=== PATIENT | female | born 1955 | race Caucasian/White ===

== ENCOUNTER → 2016-10-02 | Outpatient (CLI) | payer BC ==
[~2016-10-02] MED LIST: ATOR10TA82 PO; DICY20TA10 PO; EST1 PO; ESTR0.5T3 PO; FURO20TA PO; GLC500 PO; MELO15TA4 PO; MOME100A INH; PRAV20TA PO; VALA500T39 PO; [UNRECOGNIZED DRUG - OTHER] TOP
[2016-10-02 10:17] LABS: BLOOD UREA NITROGEN 14 mg/dl (7-18); BUN/CREATININE RATIO 20.7 (10-20); CALCIUM 9.8 mg/dl (8.5-10.1); CARBON DIOXIDE 26 mmol/L (21-32); CHLORIDE 104 mmol/L (98-107); GLUCOSE 102 mg/dl (70-99); MAGNESIUM 2.2 mg/dl (1.8-2.4); POTASSIUM 3.9 mmol/L (3.5-5.1); SODIUM 139 mmol/L (136-145)
== END | disposition home or self-care (01) ==
LOC: C.LAB1850 07:10
PROVIDERS: ATTEND Nurse Practitioner Adult Health
DX: M79.89 Other specified soft tissue disorders (principal)

== ENCOUNTER → 2016-10-10 | Outpatient (CLI) | payer BC ==
--- NOTE | 2016-10-10 16:19 | MAMMOGRAPHY REPORT ---
UNILATERAL RIGHT DIGITAL DIAGNOSTIC MAMMOGRAM TOMOSYNTHESIS WITH CAD AND TARGETED RIGHT ULTRASOUND: 10/10/2016 CLINICAL HISTORY: 61-year-old woman presents for follow-up in the right breast, for probably benign masses seen on prior diagnostic workup. Family history of breast cancer = aunt and grandmother. TECHNIQUE: Right CC and MLO 2-D digital and tomosynthesis images, spot magnification right CC and M L views were obtained. Current study was also evaluated with a Computer Aided Detection (CAD) orlando corbett. COMPARISON: Comparison is made to exams dated: 04/11/2016 mammogram, 04/11/2016 ultrasound, 04/05/20 15 ultrasound, 04/05/2015 mammogram, 03/30/2014 mammogram, and 03/26/2013 mammogram - [facility]. BREAST COMPOSITION: The tissue of the right breast is heterogeneously dense, which may obscure smal l masses. FINDINGS: The parenchymal pattern of the right breast is similar to prior mammograms. There are po ssible new clustered microcalcifications in the upper outer posterior right breast, near the fatgla ndular interface, for which additional spot magnification views were obtained. On the spot magnific ation views, there is a single round microcalcification an adjacent faint punctate and amorphous rozina rocalcifications that appear new compared to prior exams, measuring 3.5 mm in diameter. No obvious associated mass or asymmetry. Definitive characterization with tissue sampling is recommended. No other obvious new mass, focal area of architectural distortion or suspicious calcifications are iden tified. Targeted ultrasound was performed in the 12:00, 9:00 and 10:00 axes of the right breast. In the 12: 00 periareolar breast, a lobulated hypoechoic mass with posterior acoustic enhancement is again iden tified measuring 6.6 x 6.1 x 7.5 mm. This previously measured 7.7 x 5.2 x 6.9 mm and is considered unchanged. In the 10:00 right breast, 1 cm from the nipple, an oval parallel circumscribed hypoecho ic solid versus cystic mass is again seen measuring 3.8 x 3.1 x 4.1 mm. This previously measured 3. 5 x 2.6 x 4.0 mm. This is also unchanged. In the 9:00 right breast, 2 cm from the nipple, there is a lobulated and circumscribed hypoechoic solid versus cystic mass 2 cm deep to the dermis. This me asures 9.5 x 6.7 x 9.3 mm and was not definitely seen on the prior ultrasound. In the 9:00 periareo lar right breast, there is an isoechoic solid mass with hypoechoic to anechoic crescentic halo. Thi s measures 8.1 x 8.6 x 8.5 mm. In the radial plane, there is a duct coursing just below and abuttin g this mass, suggesting it may be an intraductal mass. Therefore, definitive characterization with tissue sampling is recommended. IMPRESSION: ACR BI-RADS CATEGORY 4B: INTERMEDIATE SUSPICION FOR MALIGNANCY, TARGETED ULTRASOUND ACR BI-RADS CATEGORY 4B: INTERMEDIATE SUSPICION FOR MALIGNANCY 1. Ultrasound guided core needle biopsy is recommended for a solid possible intraductal 8.6 mm mass in the 9:00 periareolar right breast. 2. Stereotactic guided biopsy is recommended in the right breast, for new faint clustered amorphous and punctate microcalcifications in the upper outer middle to posterior breast. 3. Pending benign pathology results, would recommend another targeted right breast ultrasound in th e 9:00, 10:00 and 12:00 axes to ensure stability of other masses identified on ultrasound. The mass es identified in the 12:00 periareolar breast, and 10:00 axis, 1 cm from the nipple are stable sandro red to the prior exam. A newly visualized benign appearing mass is seen in the 9:00 right breast, 2 cm from the nipple. Annual left mammography will also be due at that time. These results and recommendations were discussed with the patient at the time of the exam. She tent atively scheduled the right breast biopsies prior to leaving our department. Approximately 10% of breast cancers are not detected with mammography. A negative mammographic repor t should not delay biopsy if a clinically suggestive mass is present. Rina Ross M.D. ay/:10/10/2016 15:46:28 Test Kitchen Home Economist: Renetta ROGERS(Radha)(Harshad), [facility] letter sent: Abnormal 4/5 BI-RADS Code: ACR BI-RADS Category 4B: Intermediate Suspicion For Malignancy Ultrasound BI-RADS: AC R BI-RADS Category 4B: Intermediate Suspicion For Malignancy
== END | disposition home or self-care (01) ==
LOC: C.MAMM 09:35
PROVIDERS: ATTEND Obstetrics & Gynecology
DX: N63 Unspecified lump in breast (principal); R92.0 Mammographic microcalcification found on diagnostic imaging of breast

== ENCOUNTER → 2016-10-25 | Outpatient (CLI) | payer BC ==
--- NOTE | 2016-10-25 09:26 | Discharge Instructions ---
Discharge Instructions Procedure Procedure Date: October 25, 2016. Reason for visit: Right Calcs/Us Bx Right Mass. Discharge Discharge Date: October 25, 2016. Discharge Diagnosis: post right breast stereotactic guided biopsy and ultrasound guided core biopsy Instructions Activity Recommendations: Additional Limitations (see below) Return to School/Work: no limitations Recommended Home Diet: No Limitations Provider Instructions: ACTIVITY RECOMMENDATIONS: * No lifting, pushing, pulling or exercising the affected side for three days. RETURN TO SCHOOL/WORK: * You may return to work/school after the procedure, but do not perform any strenuous activities for 24 to 48 hours. MEDICATIONS: * Tylenol (two 325 mg) every four to six hours if needed for mild pain (if not allergic to Tylenol). DIET: * Resume previous diet. SPECIAL CARE INSTRUCTIONS: * Keep biopsy site dry for 24 hours. May shower after 24 hours, but do not soak (bathe) incision. * May remove Tegaderm (plastic patch) tomorrow AFTER showering. * Leave the steri-strips on for one week. Allow the steri-strips to fall off by themselves. If not off after one week, you may remove them. You may place a Bandaid crosswise over the strips, if desired. * Apply ice 10 minutes on and 10 minutes off as needed. * Wear a bra at bedtime to sleep more comfortably for 2-3 days. * Your referring physician should have the results after approximately 5 to 7 business days. * Call for unusual bleeding, fever, drainage, etc or if you have any questions call [phone] during normal business hours or after hours call Dr Ross, . FOLLOW UP VISIT: Follow-up with Referring Physician as scheduled. Allergies Coded Allergies: Morphine (Verified Adverse Reaction, Mild, NAUSEA AND VOMITTING, 03/21/11) No Known Allergies (Verified , 11/10/02) Danial Cowan Recommendations: Call your doctor if: * Temperature above 101 degrees * Pain not relieved by pain medicine ordered * There is increased drainage or redness from any incision * You have any unanswered questions or concerns. Your Doctors Instructions noted above were prepared by provider Rina Ross. Patient Signature Section: Patient Instructions Signature Page Mariana Gilliam Patient (or Guardian) Signature/Date: I have read and understand the instructions given to me by my caregivers. Caregiver/RN/Doctor Signature/Date: The above-named patient and/or guardian has received patient instructions on this date. + Original Patient Signature Page (only) stays with chart. Please make copy for patient.
--- NOTE | 2016-10-25 14:09 | MAMMOGRAPHY REPORT ---
THIS REPORT HAS BEEN AMENDED. AMENDMENT: 11/01/2016 Rina Ross M.D. Pathology results from ultrasound-guided core biopsy in the 9:00 right breast of a possible intraduct al mass yielded a papillary lesion without atypia. Negative for DCIS and invasive carcinoma. In the comment section of the pathology report, "while the findings are most consistent with a benign papil teto, papillary lesions may show varying features within different parts of the lesion and as such ex cisional biopsy is suggested". Therefore, surgical consultation for surgical excision is recommended . The pathology results from the stereotactic guided biopsy in the upper outer quadrant of the right br east yielded usual ductal hyperplasia, fibrocystic change, adenosis and microcalcification associated with benign ductal elements. Negative for DCIS and invasive carcinoma. The pathology results are c oncordant with the imaging appearance. ULTRASOUND GUIDED BIOPSY RIGHT BREAST: 10/25/2016 CLINICAL HISTORY: 61-year-old woman presents for ultrasound-guided core biopsy of an indeterminate so lid possible intraductal mass in the 9:00 periareolar right breast. COMPARISON: Comparison is made to exams dated: 10/25/2016 mammogram, 10/25/2016 stereotactic biopsy, ultrasound, 10/10/2016 mammogram, 04/11/2016 mammogram, and 04/11/2016 ultrasound - [facility]. PATIENT CONSENT: The procedure, risks and benefits were discussed with the patient and informed writt en consent was obtained. Specific risks to this procedure include: bleeding, infection, puncture of a djacent structure, nontarget biopsy, sampling error, metal allergy and medication reaction. PROCEDURE DESCRIPTION: A time out was performed and the right breast was agreed as the site of biopsy . The skin was prepped and draped in the usual sterile fashion. The solid, possibly intraductal mass in the 9:00 periareolar right breast was chosen as the target for biopsy. Subcutaneous and intraparen chymal 1% buffered lidocaine, with and without epinephrine, was administered as local anesthesia. A s kin incision was made. Through the incision, 4 samples were taken with a 14 gauge Achieve biopsy dev ice. A metallic marker was placed at the biopsy site. Hemostasis was achieved after manual compressio n. The patient tolerated the procedure well and there was no immediate complication. The samples wer e sent to the pathology department in an appropriately labeled container. Postprocedure right CC and LM views were obtained. There is a new ribbon-shaped metallic biopsy manuela er in the anterior 9:00 right breast, and a dumbbell shaped metallic biopsy marker in the 12:00 poste rior right breast, at the site of the biopsied mass seen on ultrasound, and clustered microcalcificat ions, respectively. No significant post biopsy hematoma is seen at either site. IMPRESSION: ULTRASOUND GUIDED BIOPSY Status post ultrasound-guided core needle biopsy of an indeterminate solid mass in the 9:00 periareol ar right breast, with ribbon shaped metallic biopsy marker placed at the site. A stereotactic guided biopsy was performed at the same time in the 12:00 right breast. Please refer to a separate report for full detail. Pending benign pathology results, follow-up targeted right breast ultrasound and bilateral diagnostic mammograms are recommended in 6 months. The patient will receive written notification of the biopsy results from her referring physician. Rina Ross M.D. ay/:10/25/2016 10:21:47 Automatic Lathe Operator: Antonio ROGERS(Radha)(Harhsad), [facility]
--- NOTE | 2016-10-25 14:09 | MAMMOGRAPHY REPORT ---
STEREOTACTIC GUIDED BIOPSY RIGHT BREAST: 10/25/2016 CLINICAL HISTORY: Indeterminate clustered microcalcifications in the 12:00 middle to posterior right breast. Patient presents for stereotactic biopsy. COMPARISON: Comparison is made to exams dated: 10/10/2016 ultrasound, 10/10/2016 mammogram, 6 mammogram, and 04/11/2016 ultrasound - [facility] [address]. PATIENT CONSENT: After explaining the risks, benefits and alternatives of the procedure to the patie nt, informed consent was obtained both verbally and in writing. Specific risks include: Bleeding, i nfection, puncture of adjacent structure, pain, nontarget biopsy, sampling error, metal allergy and medication reaction. PROCEDURE DESCRIPTION: A time-out was performed and the right breast was confirmed as the site of bi opsy. The patient was placed prone on the stereotactic biopsy table and the breast was placed in CC from above compression. A rehabilitation therapy aide image was obtained that demonstrated the clustered microcalcificatio ns in question. They are amenable to sterotactic biopsy. Then +15 and -15 stereo pair images were obtained. The calcifications were targeted utilizing the coordinates obtained by the computer. The skin was prepped with Betadine. 1% Lidocaine with and without epinipherine was administered as loca l anesthesia. A small skin incision was made. Through the incision, the needle was inserted to the depth determined by the computer. 8 samples were obtained using a [email or web address] 9-gauge vacuum-assiste d biopsy device. The specimen radiograph demonstrated several printing supplies sales representative microcalcifications, th erefore, a metallic marker was placed at the biopsy site. There was no immediate complication. Hemos tasis was achieved after several minutes of manual compression. The samples were sent to pathology in two appropriately labeled containers, "with calcifications" and "without calcifications". All of the samples were obtained from the same single biopsy site. Postprocedure CC and ML views of the right breast were obtained. There is a new dumbbell-shaped met allic biopsy marker and no significant hematoma in the 12:00 middle to posterior right breast, at th e site of the biopsied clustered microcalcifications. A ribbon-shaped metallic biopsy marker is see n more anteriorly in the 9:00 right breast, at the site of the biopsied mass identified on ultrasoun d. IMPRESSION: STEREOTACTIC GUIDED BIOPSY Status post right breast stereotactic guided biopsy of clustered microcalcifications in the 12:00 ax is, with biopsy marker placed at the site. Ultrasound-guided core needle biopsy was performed during the same appointment in the 9:00 periareol ar right breast. Please refer to a separate report for full detail. Pending benign pathology results, recommend follow-up bilateral diagnostic mammograms and repeat tar geted right breast ultrasound in 6 months to ensure stability of other findings described on the janak or diagnostic mammogram report. The patient will receive notification of the biopsy results from her referring physician. Rina Ross M.D. ay/:10/25/2016 10:52:19 Doubling Machine Operator: Antonio ROGERS(Radha)(M), [facility] [address]
--- NOTE | 2016-10-25 14:11 | MAMMOGRAPHY REPORT ---
UNILATERAL RIGHT DIGITAL DIAGNOSTIC MAMMOGRAM: 10/25/2016 CLINICAL HISTORY: Status post right breast stereotactic biopsy in the 12:00 axis, and right breast u ltrasound guided core biopsy in the 9:00 periareolar axis. Please refer to the reports from right breast ultrasound-guided core biopsy and right breast stereot actic biopsy performed at the same time for full detail. IMPRESSION: POST PROCEDURE IMAGING FOR MARKER PLACEMENT Please refer to the reports from right breast ultrasound-guided core biopsy and right breast stereot actic biopsy performed at the same time for full detail. Approximately 10% of breast cancers are not detected with mammography. A negative mammographic repor t should not delay biopsy if a clinically suggestive mass is present. Rina Ross M.D. ay/:10/25/2016 09:40:41 Neck Cutter: Antonio ROGERS(R)(M), [facility] BI-RADS Code: Post Procedure Imaging For Marker Placement
== END | disposition home or self-care (01) ==
LOC: C.MAMM 07:52
PROVIDERS: ATTEND Obstetrics & Gynecology
DX: R92.0 Mammographic microcalcification found on diagnostic imaging of breast (principal); N63 Unspecified lump in breast

== ENCOUNTER 2017-02-19 16:16 | Emergency (ER) | payer BC ==
[~2017-02-19] VITALS: Ht 170.2 cm; Wt 75.8 kg
[~2017-02-19 16:16] MED LIST changes: -ATOR10TA82 PO; +ATOR10TA88 PO; -DICY20TA10 PO; -ESTR0.5T3 PO; -FURO20TA PO; -MELO15TA4 PO; -MOME100A INH; -PRAV20TA PO; -VALA500T39 PO
[2017-02-19 16:35] VITALS: TEMP 37; Ht 170.2 cm; Wt 75.8 kg
[2017-02-19 17:20] VITALS: O2SAT 99
--- NOTE | 2017-02-19 17:35 | DIAGNOSTIC IMAGING REPORT ---
CHEST ONE VIEW PORTABLE CLINICAL HISTORY: Dyspnea COMPARISON STUDY: 06/17/2012 FINDINGS: The heart is at the upper limits of normal in size. There is no failure. There is no focal pulmonary consolidation. Increased markings within the right suprahilar region are felt to represent a summation with the right first costochondral junction. There are postsurgical changes within cervical spine. No pleural effusions are visualized.[ IMPRESSION: No active disease in the chest. Electronically signed by: Vamshi Castillo M.D. 02/19/2017 5:34 PM Dictated Date/Time: 02/19/2017 5:33 PM
[2017-02-19 17:38] LABS: BASO % 0.2 %; BASO ABS # 0.02 K/uL (0-0.2); COMPLETE YES; EOS % 4.6 %; HEMATOCRIT 38.5 % (37-47); IG% 0.5 %; LYMPH % 46.1 %; LYMPH ABS # 3.79 K/uL (1.2-3.4); MEAN CELL VOLUME 86.9 fL (80-100); MEAN CORPUSCULAR HEMOGLOBIN 28.9 pg (25-34); MEAN CORPUSCULAR HGB CONC 33.2 g/dl (32-36); MEAN PLATELET VOLUME 9.8 fL (7.4-10.4); MONO % 6.8 %; NEUT % 41.8 %; PLATELET COUNT 293 K/uL (130-400); RED BLOOD COUNT 4.43 M/uL (4.2-5.4); WHITE BLOOD COUNT 8.22 K/uL (4.8-10.8)
[2017-02-19 17:39] LABS: URINE APPEARANCE CLEAR (CLEAR); URINE BILIRUBIN NEG (NEG); URINE COLOR YELLOW; URINE NITRITE NEG (NEG); URINE PH 6.5 (4.5-7.5); URINE SPECIFIC GRAVITY 1.006 (1.000-1.030); UROBILINOGEN NEG (NEG); ZZUR CULT IF INDIC CLEAN CATCH NO
[2017-02-19 17:46] LABS: MANUAL MICROSCOPIC REQUIRED? NO; REVIEW REQ? NO
[2017-02-19 17:54] LABS: BUN/CREATININE RATIO 17.4 (10-20); CALCIUM 8.7 mg/dl (8.5-10.1); CREATININE 0.82 mg/dl (0.60-1.20); MAGNESIUM 2.1 mg/dl (1.8-2.4); POTASSIUM 3.7 mmol/L (3.5-5.1)
[2017-02-19 17:56] LABS: INR 0.9 (0.9-1.1); PROTHROMBIN TIME (PATIENT) 9.6 SECONDS (9.0-12.0)
[2017-02-19 18:05] LABS: CKMB/CK RATIO 1.5 (0-3.0); THYROID STIMULATING HORMONE 1.49 uIu/ml (0.300-4.500)
[2017-02-19] MEDS ORDERED: ESTR0.5T3 PO (18:17)
[2017-02-19] MEDS ORDERED: MOME100A INH (18:17)
[2017-02-19] MEDS ORDERED: VALA500T39 PO (18:17)
[2017-02-19] MEDS ORDERED: DICY20TA10 PO (18:17)
[2017-02-19] MEDS ORDERED: FURO20TA PO (18:17)
[2017-02-19] MEDS ORDERED: MELO15TA4 PO (18:17)
[2017-02-19] MEDS ORDERED: PRAV20TA PO (18:17)
[2017-02-19 18:36] LABS: LYME DISEASE AB IGG NEG (NEG); LYME DISEASE AB IGM NEG (NEG)
--- NOTE | 2017-02-19 19:01 | DIAGNOSTIC IMAGING REPORT ---
ULTRASOUND VENOUS DOPPLER LWR EXT BILA CLINICAL HISTORY: Lower ext swelling, dyspnea COMPARISON STUDY: No previous studies for comparison. FINDINGS: Real-time and color flow Doppler imaging were performed. Flow was seen within the femoral, popliteal and calf veins with no intraluminal thrombus demonstrated. The saphenous vein is patent. IMPRESSION: No evidence of lower extremity DVT. Electronically signed by: Vamshi Castillo M.D. 02/19/2017 6:59 PM Dictated Date/Time: 02/19/2017 6:59 PM
[2017-02-19 20:00] VITALS: BP 120/76; PULSE 66; O2SAT 99
--- NOTE | 2017-02-19 20:06 | EMERGENCY ROOM VISIT NOTE ---
History First contact with patient: 16:47 Chief Complaint: SWELLING TO EXTREMITY Stated Complaint: POSSIBLE BLOOD CLOTS IN BOTH LEGS History of Present Illness The patient is a 61 year old female who presents to the Emergency Room via private vehicle with complaints of "possible blood clots in both legs". The patient states that she notes she has had ankle swelling for the past few months. She states she was put on diuretics without change in her symptoms. She notes that she's been sitting a lot, and even has changed to a standup desk at work. This has not improved. She states that she has talked to her family doctor, who had sent her here today for further evaluation and management as she is recently makes parenting shortness of breath with exertion, as well as increased leg pain. She also notes that last week for 2 days left side of her face was numb, and she is also felt sick in her stomach. She has also had 2 episodes recently where she lost control of her urinary control. She states that at times she feels her heart is racing. She also notes that she will get injections into her right knee, she was told that she has poor vascular circulation. She states that her mother and father from heart complications in their 70s. She denies any speech troubles, weakness, lower extremity weakness, persistent bowel or bladder incontinence, bowel incontinence , fevers or chills. Review of Systems A complete 10-point Review of Systems was discussed with the patient, with pertinent positives and negatives listed in the History of Present Illness. All remaining Review of Systems questions can be considered negative unless otherwise specified. Past Medical/Surgical History Diabetes, asthma, bronchitis, pneumonia, hysterectomy Family History Diabetes, heart disease Social History Smoking Status: Never Smoker Marital Status: Patient is currently , lives locally Current/Historical Medications Scheduled Estradiol (Estradiol), 1 TAB PO DAILY Furosemide (Lasix), 20 MG PO DAILY Meloxicam (Mobic), 15 MG PO DAILY Pravastatin (Pravachol ), 20 MG PO DAILY Valacyclovir Hcl (Valtrex), 500 MG PO DAILY Scheduled PRN Dicyclomine Hcl (Dicyclomine Hcl), 1 TAB PO UD PRN for as needed Mometasone Furoate-Formoterol (Dulera 100/5 Mcg), 1 AER INH UD PRN for SOB/ Wheezing Physical Exam Vital Signs Date Time Temp Pulse Resp B/P (MAP) Pulse Ox O2 Delivery O2 Flow Rate FiO2 9/25/17 20:00 66 20 120/76 99 02/19/17 19:27 65 20 123/77 98 Room Air 02/19/17 18:14 71 16 102/69 96 Room Air 02/19/17 17:33 70 02/19/17 17:20 99 Room Air 02/19/17 16:35 37.0 81 20 127/81 96 Room Air Physical Exam VITAL SIGNS - Vital signs and nursing notes were reviewed. Stable. GENERAL - 61-year-old female appearing her stated age who is in no acute distress. Communicates well with provider and answers questions appropriately. SKIN - Without rashes. No petechial rashes. HEAD - NC/AT. No facial droop. EYES - PERRL with EOMI bilaterally. Sclera anicteric. EARS - No deformities of external structures noted on gross examination bilaterally. NOSE - Midline and without cyanosis. No epistaxis or purulent drainage noted. Septum midline without deviation or septal hematoma noted. MOUTH/OROPHARYNX - Without perioral cyanosis. Buccal mucosa pink and moist and without leukoplakia. Tongue midline with equal elevation of palate bilaterally. No tonsillar hypertrophy, erythema, or exudates noted. LUNGS - Chest wall symmetric without accessory muscle use, intercostals retractions, or central cyanosis. Normal vesicular breath sounds CTA B/L. No wheezes, rales, or rhonchi appreciated. CARDIAC - RRR with S1/S2. No murmur, rubs, or gallops appreciated. ABDOMEN - Abdominal contour normal without pulsations or visible masses. BS normoactive all four quadrants. No tenderness, palpable masses, hepatosplenomegaly, or ascites noted. EXTREMITIES - No clubbing or peripheral cyanosis. No pretibial edema present. +5 /5 strength noted in UE/LE bilaterally. NEUROLOGIC - Cranial nerves II through XII grossly intact. Sensory intact to light touch throughout. PSYCH - A&O, and cooperates fully with examiner. Pt is very pleasant and interacts well with examiner. Medical Decision & Procedures ER Provider Diagnostic Interpretation: CHEST ONE VIEW PORTABLE CLINICAL HISTORY: Dyspnea COMPARISON STUDY: 06/17/2012 FINDINGS: The heart is at the upper limits of normal in size. There is no failure. There is no focal pulmonary consolidation. Increased markings within the right suprahilar region are felt to represent a summation with the right first costochondral junction. There are postsurgical changes within cervical spine. No pleural effusions are visualized.[ IMPRESSION: No active disease in the chest. Electronically signed by: Vamshi Castillo M.D. 02/19/2017 5:34 PM Dictated Date/Time: 02/19/2017 5:33 PM ULTRASOUND VENOUS DOPPLER LWR EXT BILA CLINICAL HISTORY: Lower ext swelling, dyspnea COMPARISON STUDY: No previous studies for comparison. FINDINGS: Real-time and color flow Doppler imaging were performed. Flow was seen within the femoral, popliteal and calf veins with no intraluminal thrombus demonstrated. The saphenous vein is patent. IMPRESSION: No evidence of lower extremity DVT. Electronically signed by: Vamshi Castillo M.D. 02/19/2017 6:59 PM Dictated Date/Time: 02/19/2017 6:59 PM Laboratory Results 02/19/17 17:10 Red Blood Count 4.43, Mean Corpuscular Volume 86.9, Mean Corpuscular Hemoglobin 28.9, Mean Corpuscular Hemoglobin Concent 33.2, Mean Platelet Volume 9.8, Neutrophils (%) (Auto) 41.8, Lymphocytes (%) (Auto) 46.1, Monocytes (%) (Auto) 6.8, Eosinophils (%) (Auto) 4.6, Basophils (%) (Auto) 0.2, Neutrophils # (Auto) 3.43, Lymphocytes # (Auto) 3.79, Monocytes # (Auto) 0.56, Eosinophils # (Auto) 0.38, Basophils # (Auto) 0.02 02/19/17 17:10 Test 02/19/17 17:10 White Blood Count 8.22 K/uL (4.8-10.8) Red Blood Count 4.43 M/uL (4.2-5.4) Hemoglobin 12.8 g/dL (12.0-16.0) Hematocrit 38.5 % (37-47) Mean Corpuscular Volume 86.9 fL (80-100) Mean Corpuscular Hemoglobin 28.9 pg (25-34) Mean Corpuscular Hemoglobin Concent 33.2 g/dl (32-36) Platelet Count 293 K/uL (130-400) Mean Platelet Volume 9.8 fL (7.4-10.4) Neutrophils (%) (Auto) 41.8 % Lymphocytes (%) (Auto) 46.1 % Monocytes (%) (Auto) 6.8 % Eosinophils (%) (Auto) 4.6 % Basophils (%) (Auto) 0.2 % Neutrophils # (Auto) 3.43 K/uL (1.4-6.5) Lymphocytes # (Auto) 3.79 K/uL (1.2-3.4) Monocytes # (Auto) 0.56 K/uL (0.11-0.59) Eosinophils # (Auto) 0.38 K/uL (0-0.5) Basophils # (Auto) 0.02 K/uL (0-0.2) RDW Standard Deviation 42.1 fL (36.4-46.3) RDW Coefficient of Variation 13.1 % (11.5-14.5) Immature Granulocyte % (Auto) 0.5 % Immature Granulocyte # (Auto) 0.04 K/uL (0.00-0.02) Prothrombin Time 9.6 SECONDS (9.0-12.0) Prothromb Time International Ratio 0.9 (0.9-1.1) Activated Partial Thromboplast Time 25.1 SECONDS (21.0-31.0) Partial Thromboplastin Ratio 1.0 D-Dimer 310 ug/L FEU (0-500) Urine Color YELLOW Urine Appearance CLEAR (CLEAR) Urine pH 6.5 (4.5-7.5) Urine Specific [place] 1.006 (1.000-1.030) Urine Protein NEG (NEG) Urine Glucose (UA) NEG (NEG) Urine Ketones NEG (NEG) Urine Occult Blood NEG (NEG) Urine Nitrite NEG (NEG) Urine Bilirubin NEG (NEG) Urine Urobilinogen NEG (NEG) Urine Leukocyte Esterase NEG (NEG) Anion Gap 10.0 mmol/L (3-11) Est Creatinine Clear Calc Drug Dose 78.5 ml/min Estimated GFR () 90.8 Estimated GFR (Non- 78.3 BUN/Creatinine Ratio 17.4 (10-20) Calcium Level 8.7 mg/dl (8.5-10.1) Magnesium Level 2.1 mg/dl (1.8-2.4) Total Bilirubin 0.3 mg/dl (0.2-1) Aspartate Amino Transf (AST/SGOT) 23 U/L (15-37) Alanine Aminotransferase (ALT/SGPT) 32 U/L (12-78) Alkaline Phosphatase 48 U/L (45-117) Total Creatine Kinase 60 U/L (26-192) Creatine Kinase MB 0.9 ng/ml (0.5-3.6) Creatine Kinase MB Ratio 1.5 (0-3.0) Troponin I < 0.015 ng/ml (0-0.045) Pro-B-Type Natriuretic Peptide 36 pg/ml (0-900) Total Protein 7.2 gm/dl (6.4-8.2) Albumin 3.6 gm/dl (3.4-5.0) Globulin 3.6 gm/dl (2.5-4.0) Albumin/Globulin Ratio 1.0 (0.9-2) Thyroid Stimulating Hormone (TSH) 1.490 uIu/ml (0.300-4.500) Lyme Disease IgG Antibody NEG (NEG) Lyme Disease IgM Antibody NEG (NEG) Medical Decision Patient was seen and evaluated as above. She presents to us today with lower extremity swelling, exertional dyspnea, 2 episodes of urinary incontinence but not in a row or consistent, left-sided facial numbness 2 days a week ago. She is very pleasant on exam. IV access was initiated, and the above workup was performed. Bedside EKG reveals normal sinus rhythm, no significant change was found compared to EKG of 03/22/2011. CBC reveals no leukocytosis or anemia. Coag studies are normal. D-dimer within normal range at 310. Metabolic workup no evidence of kidney or liver failure. Troponin negative. CK-MB normal. BNP normal. TSH normal. Urine is unremarkable. Lyme disease negative. Chest x- ray negative for acute process. Bilateral lower extremity DVT study negative. Case was discussed with the attending physician, Dr. Sexton, and the decision was made that the patient could follow-up in the outpatient setting for further evaluation and testing. She was offered inpatient management, and respect were declined. I do believe that outpatient management is appropriate, therefore did discuss close follow-up with our correctional case records supervisor, who will help arrange a follow-up with the patient's family doctor later in the week. She is to return with worsening. She is felt stable for outpatient management. She was educated upon management, educated upon worrisome symptoms in which to return, had questions prior to discharge, and was discharged home in good condition. I do not suspect OH, as troponin is negative, there is no chest pain, an EKG is stable. I do not suspect PE, as her vital signs are excellent, and has a normal d-dimer. Chest x-ray reveals no acute process. I do not suspect DVT in the lower extremities as this was ruled out by ultrasound. I do not suspect overt heart failure, as the BNP is within normal limits. I suspect she likely has venous insufficiency of the lower extremities. In regard to the exertional dyspnea, etiology is unclear, but do recommend further evaluation and management by her family doctor. In evaluation and treatment of this patient following differential diagnoses were entertained: OH, PE, pericarditis, endocarditis, heart failure, venous insufficiency, DVT, among others. Impression Primary Impression: Lower leg edema Departure Information Dispostion Home / Self-Care Condition GOOD Referrals Fabiana Lowry MD (PCP) Patient Instructions My [facility] Additional Instructions You have been treated in the Emergency Department your shortness of breath with exertion, and lower leg swelling. Laboratory results and imaging studies have ruled out any emergent causes for your symptoms which would warrant admission or surgery. Drink plenty of water and stay well hydrated. Our case assembler are attempting to secure an appointment for you with her family doctor by the end of the week. As with any trip to the Emergency Department, you should follow-up with your Primary Care Provider from today's visit. Return to the emergency department if your symptoms persist despite treatment plan outlined above or if the following symptoms occur: increased fevers, chills , worsening nausea/vomiting, blood in your stool or urine. Please return with any new/concerning symptoms. Thank you for your time.
== END 2017-02-19 20:00 | disposition home or self-care (01) ==
LOC: C.EDB 16:18 → C.EDA 20:00
DX: R60.0 Localized edema (principal); E11.9 Type 2 diabetes mellitus without complications; J45.909 Unspecified asthma, uncomplicated; Z87.01 Personal history of pneumonia (recurrent); Z90.710 Acquired absence of both cervix and uterus; Z83.3 Family history of diabetes mellitus

== ENCOUNTER → 2017-03-02 | Outpatient (CLI) | payer BC ==
[~2017-03-02] MED LIST changes: -ATOR10TA88 PO; +DICY20TA10 PO; -EST1 PO; +ESTR0.5T3 PO; +FURO20TA PO; -GLC500 PO; +MELO15TA4 PO; +MOME100A INH; +PRAV20TA PO; +VALA500T39 PO; -[UNRECOGNIZED DRUG - OTHER] TOP
--- NOTE | 2017-03-02 15:07 | DIAGNOSTIC IMAGING REPORT ---
BRAIN WITHOUT CONTRAST HISTORY: 61 years-old Female R20.9 Facial [id number] acute right-sided facial paresthesia with headache and dizziness COMPARISON: Brain MR 03/21/2011 TECHNIQUE: Multiplanar multisequence MRI the brain was obtained without contrast FINDINGS: There is no restricted diffusion to suggest acute ischemia. The midline structures including the corpus callosum, brainstem, optic chiasm, infundibulum, pituitary and pineal glands are unremarkable on the sagittal T1 sequence. No cerebellar tonsillar herniation. No acute intracranial hemorrhage, midline shift, intracranial mass or abnormal extra-axial collections. No hydrocephalus or focal signal abnormalities of the brain. Major flow voids at the level of the skull base are patent. Mild thickening of the ethmoid air cells. The mastoid air cells are clear. IMPRESSION: No acute intracranial abnormality. The above report was generated using voice recognition software. It may contain grammatical, syntax or spelling errors. Electronically signed by: Archie Pedro M.D. 03/02/2017 3:06 PM Dictated Date/Time: 03/02/2017 3:02 PM
== END | disposition home or self-care (01) ==
LOC: C.MRI 13:57
PROVIDERS: ATTEND Nurse Practitioner Adult Health
DX: R20.9 Unspecified disturbances of skin sensation (principal)

== ENCOUNTER → 2017-04-30 | Outpatient (CLI) | payer BC ==
--- NOTE | 2017-05-02 07:36 | MAMMOGRAPHY REPORT ---
BILATERAL DIGITAL DIAGNOSTIC MAMMOGRAM TOMOSYNTHESIS WITH CAD AND TARGETED BILATERAL ULTRASOUND: 04/30 CLINICAL HISTORY: 61-year-old woman presents 6 months after ultrasound-guided core biopsy and stereot actic guided biopsy were performed in the right breast. 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 No excision has been performed of th e papilloma. Additional masses or previously being followed on ultrasound in both breasts. And the patient is also due for annual bilateral screening mammograms. TECHNIQUE: Bilateral breast tomosynthesis in addition to standard 2D mammography was performed. Hernandez tional spot magnification left CC and ML views were also obtained. Current study was also evaluated with a Computer Aided Detection (CAD) system. COMPARISON: Comparison is made to exams dated: 10/25/2016 ultrasound biopsy, 10/25/2016 mammogram, 09/27 stereotactic biopsy, 10/10/2016 ultrasound, 10/10/2016 mammogram, and 04/11/2016 mammogram - [facility]. BREAST COMPOSITION: The tissue of both breasts is heterogeneously dense, which may obscure small mas ses. FINDINGS: There are 2 stable biopsy marker clips in the right breast. Generally stable nodularity of the glandular tissue in the right breast. Scattered punctate benign-appearing microcalcifications. No unexpected area of architectural distortion, obvious spiculated or irregular mass or new suspicio us microcalcifications are seen in the right breast. There are possible partially circumscribed and skin. Masses in the right breast along the posterior nipple line on the MLO view, measuring 10 mm, a nd associated with a ribbon-shaped biopsy marker clip in the lateral anterior breast measuring approx imately 6 mm. Further evaluation with ultrasound was performed of the right breast. In the left breast, there are possible increase punctate microcalcifications in the upper outer middl e to posterior breast for which additional spot magnification views were obtained. With the spot mag nification views, there is a grouping of punctate microcalcifications measuring approximately 15 mm, increased compared to prior mammograms. No obvious associated mass or architectural distortion. Giv en the interval increase, these calcifications are indeterminate, warranting definitive characterizat ion with a stereotactic biopsy. A partially circumscribed and obscured mass is seen in the left stephan st just inferior to the posterior nipple line on the ML mag view measuring 14 mm. Further evaluation with ultrasound was also performed in the left breast. Targeted ultrasound was performed in both breasts. In the 4:00 left breast, 3 cm from the nipple, th ere is a circumscribed rounded hypoechoic solid appearing mass measuring 8.1 x 6.4 x 8.5 mm. When co mparing back to all available prior ultrasounds, this appears increased in size dating back to the ultrasound, at which time it measured 6.3 x 4.9 x 5.9 mm. Given the interval change, this i s indeterminate and definitive characterization with an ultrasound-guided core biopsy is recommended. A hypoechoic lobulated parallel circumscribed cystic appearing mass in the 4:00 left breast, 3 cm f rom the nipple adjacent and deep to the solid appearing mass is again identified measuring 17.1 x 7.8 x 14.5 mm. A smaller hypoechoic solid versus cystic mass is seen in the 4:00 left breast, 4 cm from the nipple measuring 3.0 x 2.8 x 3.7 mm. In the 12:00 periareolar right breast, there is a lobulated and circumscribed hypoechoic solid versus cystic mass measuring 7.3 x 6.0 x 7.0 mm, previously measured 6.6 x 6.1 x 7.5 mm and is considered u nchanged since September 2016. A smaller heterogeneous hypoechoic solid versus cystic mass in the 10:00 ri ght breast, 1 cm from the nipple measures 3.4 x 2.9 x 3.6 mm, previously measured 3.8 x 3.1 x 4.1 mm, also considered stable. The previously biopsy-proven papilloma in the 9:00 periareolar right breast currently measures 7.4 x 5.1 x 5.9 mm, which has slightly decreased since prior to biopsy at which t meg it measured 8.1 x 8.6 x 8.5 mm. In the 9:00 right breast, 2 cm from the nipple, there is an oval parallel circumscribed solid versus cystic mass with posterior acoustic enhancement, measuring 10.5 x 7.0 x 11.3 mm. IMPRESSION: ACR BI-RADS CATEGORY 4: SUSPICIOUS, TARGETED ULTRASOUND ACR BI-RADS CATEGORY 4: SUSPICIO US 1. Surgical consultation for possible surgical excision is recommended for a biopsy-proven papilloma in the 9:00 periareolar right breast. It is somewhat controversial whether all biopsy-proven papill omas without atypia need surgical excision, however at least surgical consultation is warranted. Tomeka gomez advise awaiting pathology results from the recommended left breast biopsies so that all pathology results will be available at time of surgical consultation. 2. There are other stable benign-appearing solid versus cystic circumscribed masses in the right mitul ast on ultrasound within the 12:00, 10:00 and 9:00 axes for which another six-month follow-up targete d ultrasound is recommended. 3. Stereotactic guided left breast biopsy is recommended for increased clustered punctate microcalci fications measuring 15 mm in the upper outer posterior left breast. 4. Ultrasound-guided core biopsy is recommended in the 4:00 left breast, for a hypoechoic circumscri bed mass that has slowly increased dating back to the 2015 ultrasounds, currently measuring 8.5 mm. This could possibly represent another papilloma, given the biopsy results in the right breast, or sim ply a fibroadenoma or complicated cyst. These results and recommendations were discussed with the patient at the time of the exam. She tenta tively scheduled a left breast stereotactic biopsy and ultrasound-guided core biopsy prior to leaving our department. Approximately 10% of breast cancers are not detected with mammography. A negative mammographic report should not delay biopsy if a clinically suggestive mass is present. Rina Ross M.D. ay/:05/01/2017 15:44:20 Equal Opportunity Assistant: Chikis Adams, [facility] letter sent: Abnormal 4/5 BI-RADS Code: ACR BI-RADS Category 4: Suspicious Ultrasound BI-RADS: ACR BI-RADS Category 4: Suspici ous
== END | disposition home or self-care (01) ==
LOC: C.MAMM 08:28
PROVIDERS: ATTEND Obstetrics & Gynecology
DX: R92.8 Other abnormal and inconclusive findings on diagnostic imaging of breast (principal); N63.10 Unspecified lump in the right breast, unspecified quadrant

== ENCOUNTER → 2017-05-16 | Outpatient (CLI) | payer BC ==
--- NOTE | 2017-05-16 09:05 | Discharge Instructions ---
Discharge Instructions Procedure Procedure Date: May 16, 2017. Reason for visit: W/Us Bx Left Mass, Left Calcs. Discharge Discharge Date: May 16, 2017. Discharge Diagnosis: post left breast stereotactic guided and ultrasound guided core biopsies Instructions Activity Recommendations: Additional Limitations (see below) Return to School/Work: no limitations Recommended Home Diet: No Limitations Provider Instructions: ACTIVITY RECOMMENDATIONS: * No lifting, pushing, pulling or exercising the affected side for three days. RETURN TO SCHOOL/WORK: * You may return to work/school after the procedure, but do not perform any strenuous activities for 24 to 48 hours. MEDICATIONS: * Tylenol (two 325 mg) every four to six hours if needed for mild pain (if not allergic to Tylenol). DIET: * Resume previous diet. SPECIAL CARE INSTRUCTIONS: * Keep biopsy site dry for 24 hours. May shower after 24 hours, but do not soak (bathe) incision. * May remove Tegaderm (plastic patch) tomorrow AFTER showering. * Leave the steri-strips on for one week. Allow the steri-strips to fall off by themselves. If not off after one week, you may remove them. You may place a Bandaid crosswise over the strips, if desired. * Apply ice 10 minutes on and 10 minutes off as needed. * Wear a bra at bedtime to sleep more comfortably for 2-3 days. * Your referring physician should have the results after approximately 5 to 7 business days. * Call for unusual bleeding, fever, drainage, etc or if you have any questions call [phone] during normal business hours or after hours call Dr Ross, . FOLLOW UP VISIT: Follow-up with Referring Physician as scheduled. Allergies Coded Allergies: Morphine (Verified Adverse Reaction, Mild, NAUSEA AND VOMITTING, 02/19/17) Danial Cowan Recommendations: Call your doctor if: * Temperature above 101 degrees * Pain not relieved by pain medicine ordered * There is increased drainage or redness from any incision * You have any unanswered questions or concerns. Your Doctors Instructions noted above were prepared by provider Rina Ross. Patient Signature Section: Patient Instructions Signature Page Mariana Gilliam Patient (or Guardian) Signature/Date: I have read and understand the instructions given to me by my caregivers. Caregiver/RN/Doctor Signature/Date: The above-named patient and/or guardian has received patient instructions on this date. + Original Patient Signature Page (only) stays with chart. Please make copy for patient.
--- NOTE | 2017-05-16 14:08 | MAMMOGRAPHY REPORT ---
STEREOTACTIC GUIDED BIOPSY LEFT BREAST: 05/16/2017 CLINICAL HISTORY: Increased clustered punctate microcalcifications in the lateral left breast. Antony nunez presents for stereotactic guided biopsy. During the same appointment, ultrasound-guided core biop sy was performed of an increasing hypoechoic solid versus cystic mass in the 4:00 left breast identif ied on ultrasound. COMPARISON: Comparison is made to exams dated: 04/30/2017 ultrasound, 04/30/2017 mammogram, and 017 ultrasound biopsy - [facility]. PATIENT CONSENT: After explaining the risks, benefits and alternatives of the procedure to the prerna t, informed consent was obtained both verbally and in writing. Specific risks include: Bleeding, inf ection, puncture of adjacent structure, pain, nontarget biopsy, sampling error, metal allergy and med ication reaction. PROCEDURE DESCRIPTION: A time-out was performed and the left breast was confirmed as the site of biop sy. The patient was placed prone on the stereotactic biopsy table and the breast was placed in latera lmedial compression. A ramp attendant image was obtained that demonstrated the clustered microcalcifications in question. They are amenable to sterotactic biopsy. Then +15 and -15 stereo pair images were obt ained. The calcifications were targeted utilizing the coordinates obtained by the computer. The skin was prepped with Betadine. 1% Lidocaine with and without epinipherine was administered as local anes thesia. A small skin incision was made. Through the incision, the needle was inserted to the depth d etermined by the computer. 10 samples were obtained using a [employer] 9-gauge vacuum-assisted biops y device. The specimen radiograph demonstrated several leather goods sales representative microcalcifications, therefore, a dumbbell shaped metallic marker was placed at the biopsy site. There was no immediate complication . Hemostasis was achieved after several minutes of manual compression. The samples were sent to [facility] in an appropriately labeled container. Postprocedure CC and ML tomosynthesis views of the left breast were obtained. There is a new dumbbel l-shaped metallic biopsy marker in the 2:00 to 3:00 middle one third of the left breast, denoting the site of stereotactic biopsy. No significant post biopsy hematoma is identified at this site. A rib bon-shaped biopsy marker clip is seen in the 3:00 to 4:00 left breast, middle depth, denoting the sit e of ultrasound-guided core biopsy performed during the same appointment. IMPRESSION: STEREOTACTIC GUIDED BIOPSY 1. Status post left breast stereotactic guided biopsy of clustered punctate microcalcifications in t he lateral breast, with dumbbell-shaped biopsy marker clip placed at the site. 2. Ultrasound-guided core biopsy was performed of an increasing hypoechoic mass in the 4:00 left mitul ast during the same appointment. A ribbon-shaped biopsy marker clip was placed at this site. Please refer to a separate report for full detail. 3. Surgical consultation for possible excision is still recommended for the biopsy proven papilloma in the right breast. The patient will receive notification of the biopsy results from her referring physician. Rina Ross M.D. ay/:05/16/2017 09:21:01 Float Remover: Chikis Adams, [facility]
--- NOTE | 2017-05-16 14:08 | MAMMOGRAPHY REPORT ---
ULTRASOUND GUIDED BIOPSY LEFT BREAST: 05/16/2017 CLINICAL HISTORY: Slowly increasing 8.5 mm hypoechoic mass in the 4:00 left breast. Patient presents for ultrasound guided core biopsy. She also underwent stereotactic guided biopsy in the left breast during the same appointment for increasing clustered punctate microcalcifications in the lateral mitul ast. COMPARISON: Comparison is made to exams dated: 05/16/2017 stereotactic biopsy, 04/30/2017 ultrasound, 04/30/2017 mammogram, 10/25/2016 ultrasound biopsy, 10/25/2016 mammogram, and 10/25/2016 stereotactic [facility]. PATIENT CONSENT: The procedure, risks and benefits were discussed with the patient and informed conse nt was obtained both verbally and in writing. Specific risks to this procedure include: bleeding, in fection, puncture of adjacent structure, nontarget biopsy, sampling error, pain, metal allergy and me dication reaction. PROCEDURE DESCRIPTION: A time out was performed and the left breast was agreed as the site of biopsy. The skin was prepped and draped in the usual sterile fashion. The 8.5 mm hypoechoic solid versus cys tic mass in the 4:00 left breast was chosen as the target for biopsy. Subcutaneous and intraparenchym al 1% buffered lidocaine, with and without epinephrine, was administered as local anesthesia. A skin incision was made. Through the incision, 3 samples were taken with a 14 gauge Achieve biopsy device. A ribbon shaped metallic marker was placed at the biopsy site. Hemostasis was achieved after manual compression. The patient tolerated the procedure well and there was no immediate complication. The s amples were sent to the pathology department in an appropriately labeled container. Postprocedure left CC and ML tomosynthesis images were obtained. A new ribbon-shaped biopsy marker c lip is identified in the 4:00 middle one third of the left breast, denoting the site of the biopsied hypoechoic round mass. A dumbbell shaped biopsy marker clip is seen superior to the ribbon-shaped ma rker clip in the approximate 3:00 middle one third of the left breast denoting the site of the biopsi ed clustered microcalcifications. No significant postbiopsy hematoma identified. IMPRESSION: ULTRASOUND GUIDED BIOPSY 1. Status post ultrasound guided core biopsy of a slowly increasing 8.5 mm hypoechoic solid versus c ystic mass in the 4:00 left breast, with ribbon-shaped biopsy marker clip placed at the site. 2. Stereotactic guided biopsy performed in the 3:00 middle one third of the left breast during the s levi appointment is denoted by dumbbell-shaped biopsy marker clip. 3. Surgical consultation for possible excision is recommended for the biopsy-proven papilloma in the 9:00 right breast. The patient will receive notification of the biopsy results from her referring physician. Rina Ross M.D. ay/:05/16/2017 09:33:18 Rand Sewer: Chikis Adams, [facility]
--- NOTE | 2017-05-16 14:13 | MAMMOGRAPHY REPORT ---
UNILATERAL LEFT DIGITAL DIAGNOSTIC MAMMOGRAM TOMOSYNTHESIS: 05/16/2017 CLINICAL HISTORY: Status post left breast stereotactic guided biopsy of clustered punctate microcalci fications in the the lateral breast, and ultrasound guided core biopsy of a slightly increased hypoec hoic solid versus cystic mass in the 4:00 left breast. Please refer to the reports from left breast stereotactic guided biopsy and left breast ultrasound gu ided core biopsy performed at the same time for full detail. IMPRESSION: POST PROCEDURE IMAGING FOR MARKER PLACEMENT Please refer to the reports from left breast stereotactic guided biopsy and left breast ultrasound gu ided core biopsy performed at the same time for full detail. Approximately 10% of breast cancers are not detected with mammography. A negative mammographic report should not delay biopsy if a clinically suggestive mass is present. Rina Ross M.D. ay/:05/16/2017 08:36:16 Basket Operator: Chikis Adams, [facility] BI-RADS Code: Post Procedure Imaging For Marker Placement
== END | disposition home or self-care (01) ==
LOC: C.MAMM 07:52
PROVIDERS: ATTEND Obstetrics & Gynecology
DX: R92.0 Mammographic microcalcification found on diagnostic imaging of breast (principal); N63.20 Unspecified lump in the left breast, unspecified quadrant

== ENCOUNTER → 2018-01-17 | Outpatient (CLI) | payer BC ==
[~2018-01-17] MED LIST changes: +ASPI81TA28 PO; +BIOT1TAB5 PO; +CALC500C70 PO; +CHOL1CAP85 PO; +CRANCAP4 PO; +CYAN10005 PO; -FURO20TA PO; +GLUC500C4 PO; +MELO-84 PO; -MELO15TA4 PO; +MULTTAB58 PO; -PRAV20TA PO; -VALA500T39 PO; +VALA500T41 PO
--- NOTE | 2018-01-17 07:59 | DIAGNOSTIC IMAGING REPORT ---
TWO VIEW CHEST CLINICAL HISTORY: Atypical chest pain. FINDINGS: PA and lateral chest radiographs are compared to study dated 02/19/2017. Correlation is made with chest CT dated 09/11/2007. The cardiomediastinal silhouette is unremarkable. The lungs and pleural spaces are clear. There is no pneumothorax. The skeletal structures are osteopenic. The bony thorax appears intact. Fusion hardware is noted in the lower cervical spine. IMPRESSION: No active disease in the chest. Electronically signed by: Livan Sinclair M.D. 01/17/2018 7:58 AM Dictated Date/Time: 01/17/2018 7:57 AM
[2018-01-17 09:33] LABS: BASO % 1.2 %; BASO ABS # 0.07 K/uL (0-0.2); EOS % 4.5 %; EOS ABS # 0.27 K/uL (0-0.5); HEMATOCRIT 41.4 % (37-47); HEMOGLOBIN 13.6 g/dL (12.0-16.0); IG# 0.03 K/uL (0.00-0.02); LYMPH % 42.8 %; LYMPH ABS # 2.54 K/uL (1.2-3.4); MEAN CELL VOLUME 87.5 fL (80-100); MEAN CORPUSCULAR HEMOGLOBIN 28.8 pg (25-34); MEAN CORPUSCULAR HGB CONC 32.9 g/dl (32-36); MONO % 8.8 %; MONO ABS # 0.52 K/uL (0.11-0.59); NEUT % 42.2 %; NEUT ABS # 2.51 K/uL (1.4-6.5); PLATELET COUNT 281 K/uL (130-400); RED CELL DISTRIBUTION WIDTH CV 13.4 % (11.5-14.5); WHITE BLOOD COUNT 5.94 K/uL (4.8-10.8)
[2018-01-17 10:03] LABS: ALBUMIN 3.8 gm/dl (3.4-5.0); ALKALINE PHOSPHATASE 49 U/L (45-117); ALT/SGPT 39 U/L (12-78); AST/SGOT 24 U/L (15-37); BLOOD UREA NITROGEN 12 mg/dl (7-18); CALCIUM 9.7 mg/dl (8.5-10.1); CARBON DIOXIDE 27 mmol/L (21-32); CHOLESTEROL 255 mg/dl (0-200); GLUCOSE 89 mg/dl (70-99); LDL CHOLESTEROL CALCULATED 132 mg/dl; LIPASE 174 U/L (73-393); POTASSIUM 4.2 mmol/L (3.5-5.1); SODIUM 140 mmol/L (136-145); TOTAL PROTEIN 7.5 gm/dl (6.4-8.2)
[2018-01-17 10:09] LABS: HEMOGLOBIN A1C 5.8 % (4.5-5.6)
== END | disposition home or self-care (01) ==
LOC: C.RAD 06:55
PROVIDERS: ATTEND Nurse Practitioner Adult Health
DX: R07.9 Chest pain, unspecified (principal); E78.5 Hyperlipidemia, unspecified; E55.9 Vitamin D deficiency, unspecified; Z00.00 Encounter for general adult medical examination without abnormal findings; R73.03 Prediabetes; R10.13 Epigastric pain

== ENCOUNTER 2018-08-28 04:45 | Inpatient (IN) ==
--- NOTE | 2018-07-15 13:31 | Anesthesiology Consultation ---
Date of Service July 15, 2018 Assessment & Plan (1) Encounter for pre-operative examination: Plan: - Cardio= 06/13/18= Palpitations/dizziness "over the summer" s/p unremarkable 48 hour holter monitor. "Do not feel additional cardiac testing necessary at this time." T/C extended ambulatory monitoring including implantable loop monitor if symptoms recur/progress (per patient at PAT visit 07/15/18, no recurrences). LE edema "stable" and felt 2/2 lymphedema. Borderline pulmonary HTN on 2006 cardiac cath (no evidence of pulmonary HTN noted per 2010 ECHO or 2015 stress ECHO). Chart Review Chart Review: Acceptable Risk for Surgery and Patient seen in Pre Admission Testing Teaching & Discussion Pre-Anesthesia Teaching/Discussion Notes: Instructed NPO after midnight before surgery,except medications with 15 cc of water. Medication instructions provided according to the [facility] guidelines. History Surgery Operation Date: 08/28/18 07:30 Proposed Procedures p Right Total Knee Arthroplasty - Govind Parekh MD Height/Weight Height: 5 ft 7 in Weight: 77.7 kg Allergies Allergy/AdvReac Type Severity Reaction Status Date / Time adhesive Allergy Unknown RASH Verified 07/10/18 12:19 morphine AdvReac Mild NAUSEA AND Verified 07/10/18 11:53 VOMITTING Medications Home Medications Medication Instructions Recorded Confirmed Last Taken albuterol sulfate 1 puff INHALATION Q6H PRN 07/10/18 Unknown meloxicam 15 mg PO HS 07/10/18 07/10/18 07/09/18 omega 2-rvl-dvj-fish oil [Fish Oil] 1 cap PO HS 07/10/18 07/10/18 07/09/18 rosuvastatin 5 mg PO HS 07/10/18 07/10/18 07/09/18 valacyclovir 500 mg PO HS 07/10/18 07/10/18 07/09/18 Fish Oil 1 tab PO DAILY 07/15/18 07/15/18 Unknown biotin 1 cap PO DAILY 07/15/18 07/15/18 Unknown black cohosh 40 mg PO DAILY 07/15/18 07/15/18 Unknown cholecalciferol (vitamin D3) 2,000 unit PO DAILY 07/15/18 07/15/18 Unknown [Vitamin D3] cranberry 1 cap PO DAILY 07/15/18 07/15/18 Unknown cyanocobalamin (vitamin B-12) 1,000 mcg PO DAILY 07/15/18 07/15/18 Unknown [Vitamin B-12] multivitamin 1 tab PO DAILY 07/15/18 07/15/18 Unknown pyridoxine (vitamin B6) [Vitamin 100 mg PO DAILY 07/15/18 07/15/18 Unknown B-6] vitamin E 400 unit PO DAILY 07/15/18 07/15/18 Unknown Past Medical History Medical History Asthma STABLE Breast lump "BENIGN"; OB MONITORING History of edema LE EDEMA- FELT 2/2 LYMPHEDEMA; "STABLE" PER CARDIO 05/2018 Hyperlipidemia Past Family History Family History Aunt Family history of breast cancer Grandmother (Maternal) Family history of breast cancer Past Surgical History Surgical History History of carpal tunnel surgery of right wrist History of colonoscopy History of hysterectomy History of neck surgery C5-C7 ACDF Past Anesthesia History No Hx of Anesthesia Complications and No Family Hx of Anesthesia Complications History of PONV No Motion Sickness Screening History of Motion Sickness: No Social History Smoking Status: Never smoker Do You Dip or Chew Tobacco: No Hx Alcohol Use: Yes Alcohol type: beer and wine alcohol intake frequency: a few times a week Hx Substance Use: No substance use type: does not use Exercise / Class Metabolic Activity II 4-5 Yardwork/Stairs/Walk up hill Review of Systems Patient denies chest pain, shortness of breath, dyspnea on exertion, reflux, cough, wheezing, palpitations. Physical Exam Vital Signs VITALS BP 122/75 P 72 TEMP 98.5 SP02 95%RA RESP 18 PHYSICAL Mildly decreased cervical extension Full TMJ range of motion. TMD 3 finger breaths Mallampati Score 2 Dentition: upper/lower partial dentures Lungs: clear throughout to auscultation Cardiac: regular rate and rhythm, no murmurs noted Spine: normal Carotid arteries: negative bruit Extremities: no edema Testing Electrocardiogram Date: 01/15/18 NSR at 57bpm. "No change from prior on 01/2017" per EKG report. Chest X-Ray Date: 07/15/18 Findings: + NAD Lungs are mildly hyperinflated with diaphragmatic flattening. Echocardiogram Date: 03/21/11 EF 55-60%. No RWMA. Bowing of the PMVL without evidence of MVP. No noted pulmonary HTN. Stress Test Date: 04/14/16 Type: exercise EF 65-70%. No ischemia changes suggested at 70% MPHR (nondiagnostic 2/2 failure to obtain target HR; terminated due to dyspnea). 7 METS. No chest pain. No arrhythmia. Blunted BP response to exercise. No RWMA. No significant valvular disease. Type 2 DD. Other Testing 48 Hour Holter report= 05/22/18= Rhythm is sinus rhythm. Average HR 84bpm. Minimal HR 60bpm. Maximum HR 130bpm. Isolated APDs and an atrial couplet noted. Isolated NS episode of VT. "Heart racing/pounding" correlate with NSR except on one occation when correlated with sinus tachycardia. Laboratory Results 07/15/18 13:50 07/15/18 13:50 PT 10.0 Seconds (9.0-12.0) 07/15/18 13:50 INR 1.0 (0.9-1.1) 07/15/18 13:50 APTT 23.2 Seconds (21.0-31.0) 07/15/18 13:50 Urine Color Yellow 07/15/18 13:50 Urine Appearance Clear (Clear) 07/15/18 13:50 Urine pH 7.5 (4.5-7.5) 07/15/18 13:50 Ur Specific [place] 1.018 (1.000-1.030) 07/15/18 13:50 Urine Protein Negative (Negative) 07/15/18 13:50 Urine Glucose (UA) Negative (Negative) 07/15/18 13:50 Urine Ketones Negative (Negative) 07/15/18 13:50 Urine Nitrite Negative (Negative) 07/15/18 13:50 Ur Leukocyte Esterase Trace (Negative) H 07/15/18 13:50 Urine WBC (Auto) >30 /hpf (0-5) H 07/15/18 13:50 Urine RBC (Auto) 5-10 /hpf (0-4) H 07/15/18 13:50 U Hyaline Cast (Auto) 1-5 /lpf (0-5) 07/15/18 13:50 U Epithel Cells (Auto) 20-30 /lpf (0-5) H 07/15/18 13:50 Urine Bacteria (Auto) Negative (Negative) 07/15/18 13:50
--- NOTE | 2018-07-15 13:46 | PAT Medication Instructions ---
Medication Instructions Date of Service July 15, 2018 Home Medications albuterol sulfate 1 puff INHALATION Q6H PRN meloxicam 15 mg PO HS omega 1-bnl-ymo-fish oil [Fish Oil] 1 cap PO HS rosuvastatin 5 mg PO HS valacyclovir 500 mg PO HS Multivitamin HS Biotin 10,000mg HS Cranberry 500mg HS B6 HS B12 HS Black Cohosh 40mg HS Fish Oil HS Vitamin D3 2,000 IU HS Vitamin E 400IU HS ASK your surgeon for instructions meloxicam 15 mg PO HS STOP taking 2 weeks before surgery (or as soon as possible if surgery is within 2 weeks) omega 4-mlo-lcz-fish oil [Fish Oil] 1 cap PO HS Biotin 10,000mg HS Cranberry 500mg HS Black Cohosh 40mg HS Fish Oil HS Vitamin E 400IU HS Take morning of surgery OTHERWISE NOTHING TO EAT OR DRINK AFTER MIDNIGHT: albuterol sulfate 1 puff INHALATION Q6H PRN (use if needed; please bring with you to hospital day of surgery if possible) Take evening before surgery albuterol sulfate 1 puff INHALATION Q6H PRN (if needed) rosuvastatin 5 mg PO HS valacyclovir 500 mg PO HS Multivitamin HS B6 HS B12 HS Vitamin D3 2,000 IU HS Other Notes If you have any questions please call us at [phone] or [phone] or [phone] or [phone]
--- NOTE | 2018-07-15 14:05 | XRay Report ---
XR chest Pre-admission PA/Lat HISTORY: 62 years-old Female pat preoperative exam. No acute chest complaints COMPARISON: Chest radiographs 01/17/2018 TECHNIQUE: PA and lateral views of the chest FINDINGS: Cardiomediastinal and hilar silhouettes are within normal limits. There is no pneumothorax, pleural e ffusion, focal airspace consolidation or overt pulmonary edema. Lungs are mildly hyperinflated with d iaphragmatic flattening. Degenerative changes of the shoulders and spine. Fusion hardware of the cerv ical spine is noted. IMPRESSION: No acute process. The above report was generated using voice recognition software. It may contain grammatical, syntax o r spelling errors. Electronically signed by: Archie Pedro M.D. 07/15/2018 2:04 PM
[2018-07-15 14:11] LABS: Basophils # (auto) 0.05 K/uL (0-0.2); Basophils % (auto) 0.6 %; Eosinophils # (auto) 0.26 K/uL (0-0.5); Hematocrit (blood only) 40.5 % (37-47); Hemoglobin 13.5 g/dL (12.0-16.0); Immature Granulocytes # (auto) 0.01 K/uL (0.00-0.02); Immature Granulocytes % (auto) 0.1 %; Lymphocytes # (auto) 3.34 K/uL (1.2-3.4); Lymphocytes % (auto) 38.1 %; Mean Corpuscular Hgb Conc 33.3 g/dL (32-36); Mean Corpuscular Volume 87.1 fL (80-100); Mean Platelet Volume 10.4 fL (7.4-10.4); Monocytes # (auto) 0.54 K/uL (0.11-0.59); Monocytes % (auto) 6.2 %; Neutrophils # (auto) 4.56 K/uL (1.4-6.5); Platelet Count 270 K/uL (130-400); RDW Coefficient of Variation 13.2 % (11.5-14.5); RDW Standard Deviation 42.2 fL (36.4-46.3); Red Blood Count 4.65 M/uL (4.2-5.4); White Blood Count 8.76 K/uL (4.8-10.8)
[2018-07-15 14:15] LABS: Appearance Urine Clear (Clear); Bacteria Urine Automated Negative (Negative); Bilirubin Urine Negative (Negative); Blood Urine 1+ (Negative); Color Urine Yellow; Epithelial Cell Urine Auto 20-30 /lpf (0-5); Glucose Urine UA Negative (Negative); Ketones Urine Negative (Negative); Leukocyte Esterase Urine Trace (Negative); Nitrite Urine Negative (Negative); Protein Urine Negative (Negative); Specific Gravity Urine 1.018 (1.000-1.030); Urobilinogen Urine Negative (Negative); WBC Urine Automated >30 /hpf (0-5); pH Urine 7.5 (4.5-7.5)
[2018-07-15 14:27] LABS: BUN Creatinine Ratio 18.6 (10-20); Creatinine Clr Calc Pharmacy 82.4 ml/min; Est GFR (African American) 95.8; Est GFR (Non-African American) 82.6; Potassium 3.7 mmol/L (3.5-5.1)
[2018-07-15 14:33] LABS: Partial Thromboplastin Ratio 0.9; Partial Thromboplastin Time 23.2 Seconds (21.0-31.0)
--- NOTE | 2018-08-27 20:20 | History and Physical Report ---
DATE OF ADMISSION: 08/28/2018 CHIEF COMPLAINT: Chronic right knee pain. HISTORY OF PRESENT ILLNESS: This is a 62-year-old female patient of Dr. Parekh'riley complaining of chronic right knee pain and instability, longstanding, now progressively getting worse. The patient has failed conservative treatment including intraarticular injections, the use of anti-inflammatories and the use of a sleeve. The patient has increased pain with weightbearing activities and her pain does interfere with her activities of daily living. The patient has been diagnosed with end-stage osteoarthritis in her right knee per clinical and radiographic exams. The patient wished to proceed with an elective right total knee arthroplasty. PAST MEDICAL HISTORY: Asthma, dental issues. SOCIAL HISTORY: Nonsmoker, occasional drinker. PAST SURGICAL HISTORY: Neck surgery and hysterectomy. REVIEW OF SYSTEMS: Chronic right knee pain and instability. Otherwise, denies any shortness of breath, chest pain, nausea, vomiting or any other joint complaints. FAMILY HISTORY: Noncontributory. MEDICATIONS: Multivitamin daily, cranberry 500 mg daily, biotin 10,000 mcg daily, vitamin B12 1000 mcg daily, black cohosh 40 mg daily, fish oil daily, vitamin D3 2000 units daily, vitamin E 400 units daily. ALLERGIES: INCLUDE MORPHINE AND ADHESIVES. PHYSICAL EXAMINATION: GENERAL: Well-developed, well-nourished 62-year-old female in no acute distress. She is alert and oriented x3 and pleasant. HEENT: Normocephalic, atraumatic. Extraocular motions are intact. Pupils are equal and reactive to light. HEART: Regular rate and rhythm. No murmurs are appreciated. LUNGS: Clear. ABDOMEN: Soft and nontender. Bowel sounds are present. EXTREMITIES: Right knee reveals a varus deformity with medial joint line tenderness. She has a mild effusion with crepitation with passive range of motion. Range of motion is negative 15-115 degrees. She has 5/5 strength. NEUROLOGIC: Neurovascularly, she is intact in her right lower extremity. DIAGNOSES: Right knee end-stage osteoarthritis, asthma, dental issues. PLAN: The patient was advised of her diagnosis. Indications, risks, benefits, and postop course have all been reviewed. The patient wishes to proceed with an elective right total knee arthroplasty. Necessary consent forms, preoperative testing and clearances will be obtained.
[2018-08-28] MEDS ORDERED: FAMOTIDINE 20 MG TAB PO SCH (06:00)
[2018-08-28] MEDS ORDERED: METOCLOPRAMIDE HCL 10 MG TABLET PO SCH (06:00)
[2018-08-28] MEDS ORDERED: ROPIVACAINE 0.5% HCL/PF 150 MG, BUPIVACAINE 0.5% MPF 30 ML, EPINEPHrine 30MG/30ML (OR U... INFIL SCH (06:00)
[2018-08-28] MEDS ORDERED: TRANEXAMIC ACID 1,000 MG **IV Pre-op IV SCH (06:00)
[2018-08-28] MEDS ORDERED: ACETAMINOPHEN 500 MG TAB PO SCH (06:00)
[2018-08-28] MEDS ORDERED: GABAPENTIN 300 MG x 2 PO SCH (06:00)
[2018-08-28] MEDS ORDERED: dexAMETHasone 4 MG TAB PO SCH (06:00)
[2018-08-28] MEDS ORDERED: LR 500ML BOLUS, THEN 15ML/HR IV SCH (06:00)
[2018-08-28] MEDS ORDERED: CeleBREX 200 MG CAP PO SCH (06:00)
[2018-08-28] MEDS ORDERED: CEFAZOLIN 1000MG 1,000 MG/7.5 ML SYR IV SCH (06:00)
[2018-08-28] MEDS ORDERED: ROPIVACAINE 0.5% 5 MG/ML 30 ML VIAL ONE (06:22)
[2018-08-28] MEDS ORDERED: BUPIVACAINE 0.5 % 5 MG/1 ML PF 10ML VIAL ONE (06:22)
[2018-08-28] MEDS ORDERED: TRANEXAMIC ACID 1,000 MG **IV Intra-op IV SCH (06:30)
[2018-08-28] MEDS ORDERED: fentaNYL citrate 100 MCG/2 ML VIAL ONE (06:39)
[2018-08-28] MEDS ORDERED: PROPOFOL IV EMULSION 10 MG/ML 20 ML VIAL IV ONE ×3 (06:39→08:20)
[2018-08-28] MEDS ORDERED: MIDAZOLAM HCL 1 MG/ML 2ML VIAL ONE ×2 (06:39)
[2018-08-28] MEDS ORDERED: LIDOCAINE HCL 2% 2 ML VIAL/AMP(20MG/ML) INFIL ONE (06:39)
[2018-08-28] MEDS ORDERED: PHENYLEPHRINE 100MCG/ML 5ML SYR ONE (06:39)
[2018-08-28] MEDS ORDERED: ePHEDrine sulfate 50 MG/ML SYR ONE (06:39)
[2018-08-28] MEDS ORDERED: POVIDONE-IODINE OP SOLN 30 ML BTL ONE (06:48)
[2018-08-28] MEDS ORDERED: BACITRACIN INJ 50,000 UNIT VIAL ONE (06:48)
[2018-08-28] MEDS ORDERED: ORTHO JOINT ANESTHETIC ONE (06:48)
[2018-08-28] MEDS ORDERED: ATROPINE SULFATE 0.1 MG/ML 10ML SYR IV PRN (06:54)
[2018-08-28] MEDS ORDERED: ePHEDrine sulfate 50 MG/ML AMP IV PRN (06:54)
--- NOTE | 2018-08-28 07:06 | History & Physical Bridge Note ---
Date of Service August 28, 2018 History & Physical Bridge Note I have examined the patient, reviewed the History & Physical and in the interval since the performance of the History & Physical I have noted the following changes of clinical significance: no changes noted
--- NOTE | 2018-08-28 09:11 | Post Operative Brief Note ---
Immediate Post Op Note v1 Date of Surgery August 28, 2018 Pre & Post Diagnosis Operation Date: 08/28/18 07:00 Pre-Op Diagnosis: Right Knee Degenerative Joint Disease Post-Op Diagnosis: Right Knee Degenerative Joint Disease Procedure Operation Date: 08/28/18 07:00 Actual Procedures p Right Total Knee Arthroplasty(Right) - Govind Parekh MD Surgeon Govind Parekh MD [employer] Vinayak GARCIA Estimated Blood Loss 5 Findings Consistent with Post-Op Diagnosis Specimens bone cuts Drains Hemovac Drain (10 FR DUAL TROCAR) Anesthesia Type Spinal MAC Complications none Disposition Accompanied Patient To Recovery: No Disposition: Recovery Room Overlapping Procedure I was immediately available: during the entire case.
--- NOTE | 2018-08-28 09:36 | Operative Report ---
Post Operative Report Pre & Post Diagnosis Operation Date: 08/28/18 07:00 Pre-Op Diagnosis: Right Knee Degenerative Joint Disease Post-Op Diagnosis: Right Knee Degenerative Joint Disease Procedure Operation Date: 08/28/18 07:00 Actual Procedures p Right Total Knee Arthroplasty(Right) - Govind Parekh MD Surgeon Govind Parekh MD Garage Construction Equipment Mechanic Vinayak GARCIA Estimated Blood Loss 5 Findings Consistent with Post-Op Diagnosis Specimens Bone cuts Drains 2 Hemovac Anesthesia Type Spinal MAC Complications none Disposition Accompanied Patient To Recovery: No Disposition: Recovery Room Indications 62-year-old female with chronic progressive osteoarthritis right knee. She has had extensive conservative management multiple injections bracing therapy failed all conservative management. Radiographs demonstrate she has a varus knees [id number] medial compartment she has mildly advanced patellofemoral osteoarthritis. Description of Procedure Patient taken to the operating room placed supine on the operating table and anesthetized under spinal MAC regional block anesthesia. Exam under anesthesia demonstrated varus knee tight medial compartment flexion contracture of 5 degrees with full flexion. A pneumatic tourniquet was placed about the thigh of the right lower extremity. The right lower extremity was prepped and draped in usual fashion. Leg was elevated exsanguinated with an Esmarch bandage and the pneumatic was raised to 325 mm mercury. An anterior incision was made across the right knee. The skin was incised longitudinally subcutaneous flaps were elevated and an incision was made through the medial retinaculum extending up into the mid third of the quadriceps tendon and extended down to the medial tibial tubercle. Intra-articular findings demonstrated severe medial compartment OA eburnated bone femoral condyle tibia plateau grade 4 chondral lesion lateral femoral condyle grade 4 patellofemoral chondrosis the patella. The knee was exposed by excising the infrapatellar fat pad, excising the meniscal remnants and cruciate ligaments or remnants of the ligaments. Any inflamed synovial tissue was resected. The fat pad over the anterior femur was resected for placement of the component in that area. The lateral synovial bands were release. Appropriate releases were performed to balance ligaments. The femur was exposed. The custom femoral cutting block was pinned in position. The distal femoral cutting block was applied. The distal femoral cut was made with the oscillating saw. The size 8, 4-in-1 cutting block was placed. The anterior and posterior chamfer cuts were made. The knee was extended and a subperiosteal peel lateral release was performed around the patella. The patell a width was measured and width was reproduced using freehand cut technique. The 32 millimeter symmetrical patella was used. 3 drill holes are made for the pegs. The tibia was exposed. A custom tibial cutting block was positioned and drill holes were made for the cutting guide. Cutting guide was placed and the proximal cut was made with the oscillating saw. All osteophytes were resected. The lamina meat and poultry inspector was used to assess ligamentous balance and the ligaments were balanced in extension and flexion. In order to balance ligaments had to do medial posterior medial releases. the tibia was reexposed and measured for a size E tibial component. This was externally rotated in line with the tibial tubercle and the fixation pins were drilled. The proximal tibia was fashioned with the drill and punch. The size 8 femoral trial was inserted. The trial MC inserts were used. The 10 mm insert gave balanced ligaments through full range of motion. The patella tracked centrally but had just some slight liftoff so I did a lateral release leaving the synovium intact and the patella tracked completely centrally. the trials were removed. The orthomix anesthetic cocktail was injected per protocol. The knee was then copiously irrigated with pulsatile lavage antibiotic solution with bacitracin. The final components were cemented with Simplex cement. The final components were persona CR size 8 standard right femur, size E tibia, 10 mm MC poly, 32 x 8.5 symmetrical patella. While the cement cured with the knee in full extension the Betadine soak was used per protocol. After the cement cured, the knee joint was copiously irrigated with antibiotic solution with bacitracin. 2 drains were brought out laterally and connected to a Hemovac. The quadriceps tendon and medial retinaculum were closed with interrupted [id number] #1 Vicryl sutures. The knee was taken through a full range of motion and repair was secure. The subcutaneous tissues were closed with 2-0 Vicryl sutures and skin was closed with ted. Sterile dressings were applied and the patient tolerated the procedure well. Vinayak GARCIA my physician accounting administrative assistant, assisted in soft tissue retraction instrument management leg positioning the closure and will participate in the postoperative care of the patient. I attest to the content of the Intraoperative Record and any orders documented therein. Any exceptions are noted below.
--- NOTE | 2018-08-28 09:43 | XRay Report ---
XR knee RT 2V routine CLINICAL HISTORY: 62 years-old Female presenting with Surgical Post Op. TECHNIQUE: Frontal and lateral views of the right knee were obtained. COMPARISON: None. FINDINGS: Postsurgical changes of total right knee arthroplasty with patellar resurfacing. Expected intra-artic ular and soft tissue emphysema. Overlying skin ted and a surgical drain noted. No malalignment or periprosthetic fracture. IMPRESSION: Expected postsurgical appearance status post total right knee arthroplasty with patellar resurfacing. Electronically signed by: Matthias García M.D. 08/28/2018 9:41 AM
[2018-08-28] MEDS ORDERED: SODIUM CHLORIDE 0.9% 1000ML 1,000 ML IV SCH (10:46)
[2018-08-28] MEDS ORDERED: ALBUTEROL HFA 8 GM INHALER INH PRN (10:46)
[2018-08-28] MEDS ORDERED: HYDROmorphone INJ 0.5 MG/0.5 ML SYR IV PRN (10:46)
[2018-08-28] MEDS ORDERED: BISACODYL 10 MG SUPP PR PRN (10:46)
[2018-08-28] MEDS ORDERED: METOCLOPRAMIDE HCL INJ 5 MG/ML 2 ML VIAL IV PRN (10:46)
[2018-08-28] MEDS ORDERED: ONDANSETRON INJ 2 MG/ML 2 ML VIAL IV PRN (10:46)
[2018-08-28] MEDS ORDERED: NALOXONE HCL 0.4 MG/1 ML VIAL/CARP IV PRN (10:46)
[2018-08-28] MEDS ORDERED: MAGNESIUM HYDROXIDE SUSP 30 ML UDC PO PRN (10:46)
--- NOTE | 2018-08-28 11:08 | Consultation ---
Date of Consultation August 28, 2018 Assessment & Plan (1) S/P total knee arthroplasty: S/p right TKA with Dr. Parekh on 08/28. No operative complications and no current complaints. - Post-operative care per primary team (2) Asthma: No current wheezing or shortness of breath. No concerns for exacerbation. - Albuterol PRN already ordered. Given medical stability, Hospital Medicine team will sign off. Please re-consult with any questions or concerns. Thank you for letting us assist in the care of this patient! History of Present Illness Attending Physician: Govind Parekh MD History of Present Illness 62yo F w/ hx of asthma and osteoarthritis who presents as a medical consult after right TKA with Dr. Parekh on 08/28. Patient reports increasing right knee pain that was worsening despite conservative measures. Underwent uneventful procedure. Presently has a headache, but in minimal pain from her knee. No shortness of breath. Otherwise in good spirits and without any acute complaints, including chest pain, nausea, vomiting, abdominal pain, or significant MSK pain. Reports using her albuterol inhaler sporadically and does not have or need a maintenance inhaler. Allergies Allergy/AdvReac Type Severity Reaction Status Date / Time adhesive Allergy Unknown RASH Verified 08/28/18 05:25 morphine AdvReac Mild NAUSEA AND Verified 08/28/18 05:25 VOMITTING Home Medications Home Medications Medication Instructions Recorded Confirmed Type albuterol sulfate 1 puff INHALATION Q6H PRN 07/10/18 08/28/18 History meloxicam 15 mg PO HS 07/10/18 07/10/18 History omega 3-psn-qhg-fish oil [Fish Oil] 1 cap PO HS 07/10/18 07/10/18 History rosuvastatin 5 mg PO HS 07/10/18 08/28/18 History valacyclovir 500 mg PO HS 07/10/18 08/28/18 History biotin 1 cap PO DAILY 07/15/18 08/28/18 History black cohosh 40 mg PO DAILY 07/15/18 08/28/18 History cholecalciferol (vitamin D3) 2,000 unit PO DAILY 07/15/18 08/28/18 History [Vitamin D3] cranberry 1 cap PO DAILY 07/15/18 08/28/18 History cyanocobalamin (vitamin B-12) 1,000 mcg PO DAILY 07/15/18 08/28/18 History [Vitamin B-12] multivitamin 1 tab PO DAILY 07/15/18 08/28/18 History pyridoxine (vitamin B6) [Vitamin 100 mg PO DAILY 07/15/18 08/28/18 History B-6] vitamin E 400 unit PO DAILY 07/15/18 08/28/18 History Patient History Medical History Asthma STABLE Breast lump "BENIGN"; OB MONITORING History of edema LE EDEMA- FELT 2/2 LYMPHEDEMA; "STABLE" PER CARDIO 05/2018 Hyperlipidemia Surgical History History of carpal tunnel surgery of right wrist History of colonoscopy History of hysterectomy History of neck surgery C5-C7 ACDF Family History Aunt Family history of breast cancer Grandmother (Maternal) Family history of breast cancer Social History Preferred Language: Moroccan Communication Ability: Effective Hematology Specialist Required: No Beliefs That Will Affect Care: None Current Living Situation: Spouse Other Information That Helps Us Care for You: No Feels Safe at Home: Yes Smoking Status: Never smoker Hx Alcohol Use: Yes Hx Substance Use: No Review of Systems Constitutional: no fever, no chills and no sweats Eyes: no diplopia Ear, Nose, Mouth, Throat: no ear trauma, no nasal discharge and no dental pain Respiratory: no cough, no chest congestion and no dyspnea Cardiovascular: no chest pain, no dyspnea on exertion, no palpitations and no syncope Gastrointestinal: no abdominal pain, no belching, no constipation, no diarrhea/loose stools, no blood in stools and no melena Musculoskeletal: no back pain, no joint pain and no muscle weakness Integumentary: no rash, no skin ulcer and no erythema Neurologic: no generalized weakness, no loss of sensation, no numbness and no paresthesia Psychiatric: no depression and no anxiety Endocrine: no fatigue, no polydipsia and no polyphagia Physical Exam Vital Signs (Past 24 Hours): Last Vital Signs Temp 36.4 C L 08/28/18 10:15 Pulse 65 08/28/18 10:51 Resp 18 08/28/18 10:51 BP 144/88 H 08/28/18 10:51 Pulse Ox 97 08/28/18 10:51 Constitutional: WD/WN, vitals as above Eyes: EOM intact bilaterally; no conjunctival abnormality ENMT: external ear and nose normal, oropharynx normal Neck: trachea midline, no thyromegaly normal visual inspection Respiratory: normal respiratory effort, lungs clear to auscultation no respiratory distress Cardiovascular: RRR, no murmur, no edema Gastrointestinal (Abdomen): Inspection/Auscultation: abdomen normal to inspection; abdomen not distended Musculoskeletal: no cyanosis or clubbing, extremities motor strength 5/5 Knee: + surgical incision (Bandaged) Skin: no rashes, warm and dry Neurologic: moves all extremities and awake Psychiatric: Orientation: alert, oriented to person and cooperative
--- NOTE | 2018-08-28 11:23 | Anesthesiology Progress Note ---
Date of Service August 28, 2018 Anesthesia Post Procedure Vital Signs Vital Signs: Temp Pulse Pulse Resp BP Pulse Ox 08/28/18 11:11 66 18 115/74 99 08/28/18 10:51 65 18 144/88 H 97 08/28/18 10:15 36.4 C L 72 16 114/72 97 08/28/18 09:55 36.6 C 71 14 113/66 96 08/28/18 09:45 75 14 120/65 97 08/28/18 09:35 79 14 108/59 L 96 08/28/18 09:25 81 14 105/55 L 97 08/28/18 09:19 36.7 C 87 14 90/56 L 96 08/28/18 05:31 36.5 C 72 20 128/87 97
[2018-08-28] MEDS: CEFAZOLIN 1000MG 1,000 MG/7.5 ML SYR IV SCH ×2 (13:50→21:40)
[2018-08-28] MEDS: ACETAMINOPHEN 500 MG TAB PO SCH ×2 (13:51→21:39)
[2018-08-28] MEDS: TRAMADOL HCL 50 MG TABLET PO PRN ×2 (15:45→20:04)
[2018-08-28] MEDS: DOCUSATE SODIUM 100 MG CAP PO SCH (21:37)
[2018-08-28] MEDS: ROSUVASTATIN CALCIUM 5 MG TAB PO SCH (21:38)
[2018-08-28] MEDS: ASPIRIN 81 MG ECTAB PO SCH (21:38)
[2018-08-28] MEDS: SENNA 8.6 MG TAB PO SCH (21:39)
[2018-08-28] MEDS: CeleBREX 200 MG CAP PO SCH (21:39)
[2018-08-28] MEDS: OMEGA-3 (PURIFIED FISH OIL) 1 GM CAP PO SCH (21:40)
[2018-08-28] MEDS: VALACYCLOVIR HCL 500 MG TABLET PO SCH (21:40)
[2018-08-29] MEDS: ACETAMINOPHEN 500 MG TAB PO SCH ×3 (05:55→21:47)
[2018-08-29 06:31] LABS: Hematocrit (blood only) 28.9 % (37-47); Mean Corpuscular Hgb Conc 34.6 g/dL (32-36); Mean Corpuscular Volume 84.8 fL (80-100); Mean Platelet Volume 9.7 fL (7.4-10.4); Platelet Count 208 K/uL (130-400); RDW Coefficient of Variation 13.2 % (11.5-14.5); RDW Standard Deviation 40.4 fL (36.4-46.3); Red Blood Count 3.41 M/uL (4.2-5.4); White Blood Count 13.42 K/uL (4.8-10.8)
[2018-08-29 06:49] LABS: BUN Creatinine Ratio 20.4 (10-20); Calcium 8.3 mg/dl (8.5-10.1); Creatinine Clr Calc Pharmacy 94.1 ml/min; Est GFR (African American) 109.7; Est GFR (Non-African American) 94.6; Potassium 3.7 mmol/L (3.5-5.1)
--- NOTE | 2018-08-29 08:05 | Orthopedic Progress Note ---
Date of Service August 29, 2018 Assessment & Plan (1) S/P total knee arthroplasty: Stable post total knee replacement. Monitor nausea. Perform dressing changes right knee and remove nonfunctioning Hemovac drain. Continue PT. Subjective Patient was feeling queasy last night but feels better this morning Physical Exam Vital Signs (Past 24 Hours): Last Vital Signs Temp 36.8 C 08/29/18 07:08 Pulse 65 08/29/18 07:08 Resp 16 08/29/18 07:08 BP 109/69 08/29/18 07:08 Pulse Ox 97 08/29/18 07:08 Physical Exam: Dressing had to be reinforced due to some bleeding and the Hemovac drain is sucking air.Neurological exam is intact. Circulation normal. Able to do straight leg raise.
[2018-08-29] MEDS: OXYCODONE HCL IR 5 MG TAB (IMMEDIATE RELEASE) PO PRN ×4 (08:07→20:49)
[2018-08-29] MEDS: CYANOCOBALAMIN 500 MCG TABLET (VITAMIN B-12) PO SCH (08:10)
[2018-08-29] MEDS: TOCOPHERYL, DL-ALPHA 400 UNITS CAP PO SCH (08:10)
[2018-08-29] MEDS: ASPIRIN 81 MG ECTAB PO SCH ×2 (08:10→21:47)
[2018-08-29] MEDS: PYRIDOXINE HCL 50 MG TAB PO SCH (08:10)
[2018-08-29] MEDS: DOCUSATE SODIUM 100 MG CAP PO SCH ×2 (08:10→21:47)
[2018-08-29] MEDS: CHOLECALCIFEROL 1,000 UNITS TAB PO SCH (08:10)
[2018-08-29] MEDS: MULTIVITAMIN TAB PO SCH (08:10)
--- NOTE | 2018-08-29 08:20 | Anesthesiology Progress Note ---
Date of Service August 29, 2018 Anesthesia Post Procedure Vital Signs Vital Signs: Temp Pulse Pulse Resp BP Pulse Ox 08/29/18 07:08 36.8 C 65 16 109/69 97 08/29/18 03:46 36.8 C 70 18 104/54 L 97 08/28/18 23:44 36.4 C L 77 18 105/60 94 08/28/18 19:09 36.5 C 72 14 133/77 95 08/28/18 15:13 36.7 C 73 16 124/71 96 08/28/18 13:41 77 18 113/68 95 08/28/18 12:05 70 18 137/82 98 08/28/18 11:11 66 18 115/74 99 08/28/18 10:51 65 18 144/88 H 97 08/28/18 10:15 36.4 C L 72 16 114/72 97 08/28/18 09:55 36.6 C 71 14 113/66 96 08/28/18 09:45 75 14 120/65 97 08/28/18 09:35 79 14 108/59 L 96 08/28/18 09:25 81 14 105/55 L 97 08/28/18 09:19 36.7 C 87 14 90/56 L 96 Pain Intensity Right Knee: Pain Intensity: 8 Notes Notes: Dr. Parekh seeing patient. KANDICE. Observed patient being awake in bed speaking with Izabella. No distress noted.
[2018-08-29] MEDS: CeleBREX 200 MG CAP PO SCH ×2 (08:55→21:47)
[2018-08-29] MEDS ORDERED: NON-FORMULARY MEDICATION (Biotin 1 CAP) PO SCH (09:00)
[2018-08-29] MEDS ORDERED: CRANBERRY PO SCH (09:00)
[2018-08-29] MEDS ORDERED: MULTIVITAMIN TAB PO SCH (09:00)
[2018-08-29] MEDS ORDERED: BLACK COHOSH 40 MG PO SCH (09:00)
[2018-08-29] MEDS: OMEGA-3 (PURIFIED FISH OIL) 1 GM CAP PO SCH (21:47)
[2018-08-29] MEDS: VALACYCLOVIR HCL 500 MG TABLET PO SCH (21:47)
[2018-08-29] MEDS: ROSUVASTATIN CALCIUM 5 MG TAB PO SCH (21:47)
[2018-08-29] MEDS: SENNA 8.6 MG TAB PO SCH (21:47)
[2018-08-30] MEDS: OXYCODONE HCL IR 5 MG TAB (IMMEDIATE RELEASE) PO PRN ×3 (00:57→12:48)
[2018-08-30] MEDS: ACETAMINOPHEN 500 MG TAB PO SCH (05:39)
[2018-08-30 06:41] LABS: Hematocrit (blood only) 28.8 % (37-47); Hemoglobin 9.6 g/dL (12.0-16.0); Mean Corpuscular Hgb Conc 33.3 g/dL (32-36); Mean Corpuscular Volume 86.2 fL (80-100); Mean Platelet Volume 10.1 fL (7.4-10.4); Platelet Count 204 K/uL (130-400); RDW Coefficient of Variation 13.5 % (11.5-14.5); Red Blood Count 3.34 M/uL (4.2-5.4); White Blood Count 7.99 K/uL (4.8-10.8)
[2018-08-30 07:09] LABS: Calcium 8.5 mg/dl (8.5-10.1); Creatinine Clr Calc Pharmacy 94.1 ml/min; Est GFR (African American) 109.7; Est GFR (Non-African American) 94.6; Potassium 3.7 mmol/L (3.5-5.1)
[2018-08-30] MEDS ORDERED: KETOROLAC 30 MG/ML VIAL IV ONE (08:23)
[2018-08-30] MEDS: ASPIRIN 81 MG ECTAB PO SCH (08:30)
[2018-08-30] MEDS: DOCUSATE SODIUM 100 MG CAP PO SCH (08:30)
[2018-08-30] MEDS: CeleBREX 200 MG CAP PO SCH (08:30)
[2018-08-30] MEDS: MULTIVITAMIN TAB PO SCH (08:33)
[2018-08-30] MEDS: CYANOCOBALAMIN 500 MCG TABLET (VITAMIN B-12) PO SCH (08:33)
[2018-08-30] MEDS: CHOLECALCIFEROL 1,000 UNITS TAB PO SCH (08:34)
[2018-08-30] MEDS: TOCOPHERYL, DL-ALPHA 400 UNITS CAP PO SCH (08:34)
[2018-08-30] MEDS: PYRIDOXINE HCL 50 MG TAB PO SCH (08:34)
--- NOTE | 2018-08-30 08:36 | Orthopedic Progress Note ---
Date of Service August 30, 2018 Assessment & Plan (1) S/P total knee arthroplasty: Continue PT and OT protocols. DVT prophylaxis with aspirin twice daily, SCDs, BRANDON burch. Pain management-continue current oxycodone and hydromorphone as well as acetaminophen. I ordered a one-time dose of Toradol 30 mg IV to help her with her pain control. We will plan to send her home today but will recheck to make sure her pain control is adequate. We discussed that she should be taking the medication as prescribed and not try to tough her way through the pain. We discussed that once she leaves the hospital, if her pain becomes worse and is uncontrolled, she would likely have to go to the emergency room. We discussed that she should continue to take the medication as prescribed for the first 2-3 days and then she can start weaning herself off of the narcotic as necessary. Patient understands. Subjective Postop day 2 status post right total knee arthroplasty. Patient is sitting at the bedside getting ready to eat her breakfast. She is having some pain in the knee this morning and had taken 1 oxycodone tablet. We discussed her pain control and that once the blocks were off, she was surprised at how much pain she was having. Patient expresses concern over getting addicted to narcotics which is why she has been hesitant to take the medication as its ordered. I believe she is having a little bit more pain than she is verbalizing which she did agree. She denies any shortness of breath, chest pain, lightheadedness. She is hoping to go home today. Physical Exam Vital Signs (Past 24 Hours): Last Vital Signs Temp 36.8 C 08/30/18 07:18 Pulse 62 08/30/18 07:18 Resp 18 08/30/18 07:18 BP 104/61 08/30/18 07:18 Pulse Ox 96 08/30/18 07:18 Physical Exam: Incision is clean dry and intact. She does have some swelling typical for this type of surgery. No overt ecchymosis. Calves are soft and nontender. Neurovascular is intact. Toes are mobile.
--- NOTE | 2018-09-08 13:57 | Discharge Summary ---
HISTORY OF PRESENT ILLNESS: This is a 62-year-old female patient of Dr. Parekh's complaining of chronic right knee pain, longstanding, now progressively getting worse. The patient failed conservative treatment and elected to proceed with a right total knee arthroplasty. PAST MEDICAL HISTORY: Asthma and dental issues. POSTOPERATIVE COURSE: The patient underwent a right total knee arthroplasty on 08/28/2018. She was followed closely with medical consultation and deemed stable. Physical therapy, pain control, and DVT prophylaxis in the form of aspirin. The patient did have some pain control issues postoperatively. She was not using the pain medications correctly. She was explained in detail how to use pain medications properly and to keep the head of the pain over the first week or 2 and she stabilized and was discharged on postoperative day #2. No other postoperative issues. PHYSICAL EXAMINATION: On discharge, right knee incision was clean, dry and intact. There was no redness or drainage. There was no calf tenderness. Negative Homans sign. Toes and ankle were mobile. Neurologically and neurovascularly, she is intact in her right lower extremity. DIAGNOSES: Status post right total knee arthroplasty. She has a history of asthma and dental issues. PLAN: The patient was discharged home with outpatient physical therapy. She will continue her preadmission medications with the distant addition of aspirin for DVT prophylaxis and pain medications. The patient will follow up with Dr. Parekh as an outpatient.
== END 2018-08-30 13:08 | disposition home or self-care (01) | DRG 470 ==
LOC: ASU 04:45 → 3E 09:24